=== PATIENT | female | born 1935 | race Caucasian/White ===

== ENCOUNTER → 2017-10-08 | Outpatient (CLI) | payer MEDICARE, OTHER ==
[~2017-10-08] MED LIST: ASPI81CH PO; ATEN25 PO; B12; BENAML10/5 PO; CALCAVITD PO; CIPR500 PO; CYAN500 PO; DONE10 PO; Flonase 0.05% N16 GM; LOVA40 PO; MEMA10 PO; NAMZARIC; OMEP20ER PO; OXYB5ER PO; PROBIOTIC1 EACH PO; RANI150 PO; Sleep Aid25 M1 PO; TOCO1000 PO; TUMS300 MG PO; VALS80 PO
[2017-10-08 10:04] LABS: Source, Urine Clean Catch
[2017-10-08 10:24] LABS: Bacteria Rare /hpf; Red Blood Cells, Urine 0-2 /hpf (0-2); Squamous Epithelial Cells Few /hpf (Few)
== END | disposition home or self-care (01) ==
LOC: LAB EV 10:02 → LAB SHORT 10:02
PROVIDERS: General Practice
DX: R41.82 Altered mental status, unspecified (principal)
CPT/HCPCS: 81015; 87086

== ENCOUNTER → 2017-11-20 | Outpatient (CLI) | payer MEDICARE, OTHER ==
[2017-11-20 11:29] LABS: Source, Urine Clean Catch
[2017-11-20 11:51] LABS: Bilirubin, Urine Neg (Neg); Blood, Urine 1+ (Neg); Glucose Qualitative, Urine Neg (Neg); Ketones, Urine Neg (Neg); Leukocyte Esterase, Urine 1+ (Neg); Nitrite, Urine Neg (Neg); Protein, Urine Neg (Neg); Specific Gravity, Urine 1.015 (1.003-1.022); Urobilinogen, Urine NORM (Normal)
[2017-11-20 12:13] LABS: Appearance, Urine Clear (Clear); Color, Urine Yellow (P-Yellow)
[2017-11-20 12:14] LABS: Bacteria Many /hpf; Squamous Epithelial Cells Few /hpf (Few)
== END ==
LOC: LAB 10:30 → LAB SHORT 10:30
PROVIDERS: Hospitalist
DX: N39.0 Urinary tract infection, site not specified (principal)
CPT/HCPCS: 81001; 87086

== ENCOUNTER → 2017-12-14 | Outpatient (CLI) | payer MEDICARE, OTHER ==
[2017-12-15 09:40] LABS: Source, Urine Clean Catch
[2017-12-15 10:02] LABS: Bilirubin, Urine Neg (Neg); Blood, Urine Neg (Neg); Glucose Qualitative, Urine Neg (Neg); Ketones, Urine Neg (Neg); Leukocyte Esterase, Urine Neg (Neg); Nitrite, Urine Neg (Neg); Protein, Urine Neg (Neg); Urobilinogen, Urine NORM (Normal); pH, Urine 6.5 (5.0-8.0)
[2017-12-15 10:12] LABS: Appearance, Urine Clear (Clear); Color, Urine Pale Yellow (P-Yellow)
== END | disposition home or self-care (01) ==
LOC: LAB 16:30 → LAB SHORT 16:30
PROVIDERS: Hospitalist
DX: N39.0 Urinary tract infection, site not specified (principal)
CPT/HCPCS: 81003

== ENCOUNTER 2018-07-08 15:59 | Inpatient (IN) | payer MEDICARE, OTHER ==
[~2018-07-08] VITALS: Ht 157.5 cm; Wt 84.0 kg
[~2018-07-08 15:59] MED LIST changes: -GABA300 PO; -OLME20 PO
[2018-07-08 16:38] LABS: BASOPHILS ABSOLUTE AUTO 0.03 K/mm3 (0.00-0.23); BASOPHILS PERCENT AUTO 0 % (0-2); EOSINOPHILS ABSOLUTE AUTO 0.08 K/mm3 (0.00-0.68); EOSINOPHILS PERCENT AUTO 1 % (0-6); Hematocrit 30.3 % (33.0-51.0); Hemoglobin 10.9 g/dL (11.5-16.0); IMMATURE GRAN ABSOLUTE AUTO 0.03 K/mm3 (0.00-0.10); IMMATURE GRAN PERCENT AUTO 0 % (0-1); LYMPHOCYTES ABSOLUTE AUTO 0.85 K/mm3 (0.84-5.20); LYMPHOCYTES PERCENT AUTO 9 % (21-46); MONOCYTES ABSOLUTE AUTO 1.53 K/mm3 (0.16-1.47); MONOCYTES PERCENT AUTO 16 % (4-13); Mean Corpuscular HGB 34.4 pg (26.0-34.0); Mean Platelet Volume 9.6 fL (9.1-12.4); NEUTROPHILS ABSOLUTE AUTO 7.04 K/mm3 (1.96-9.15); NEUTROPHILS PERCENT AUTO 74 % (41-73); Platelet Count 128 K/mm3 (150-400); RDW Coefficient Variation 12.1 % (11.7-14.2); RDW Standard Deviation 42.9 fL (35.1-46.3); Red Blood Cell Count 3.17 M/mm3 (3.80-5.20); White Blood Cell Count 9.56 K/mm3 (4.00-11.30)
[2018-07-08 16:40] LABS: Mean Corpuscular Volume 96 fL (80-100)
[2018-07-08 17:56] LABS: Alanine Aminotransfer (ALT/SGP 21 U/L (12-78); Albumin, Blood 3.1 g/dL (3.4-5.0); Albumin/Globulin Ratio 0.9 (0.8-1.8); Alk Phos 52 U/L (50-136); Anion Gap 13 mmol/L (6-16); Aspartate Aminotrans (AST/SGOT 27 U/L (12-37); Bilirubin, Total 0.6 mg/dL (0.1-1.0); Blood Urea Nitrogen 17 mg/dL (8-24); Bun/Creatinine Ratio 22.1 (12.0-20.0); CO2, Blood 17 mmol/L (21-32); Calcium, Blood 7.8 mg/dL (8.5-10.1); Chloride, Blood 89 mmol/L (98-108); Creatinine, Blood 0.77 mg/dL (0.40-1.00); Globulin, Blood 3.4 g/dL (2.2-4.0); Glomerular Filtration Rate >60 (60-); Glucose, Blood 95 mg/dL (70-99); Potassium, Blood 4.4 mmol/L (3.5-5.5); Sodium, Blood 119 mmol/L (136-145); Total Protein, Blood 6.5 g/dL (6.4-8.2)
[2018-07-08 22:29] LABS: Anion Gap 10 mmol/L (6-16); Blood Urea Nitrogen 14 mg/dL (8-24); Bun/Creatinine Ratio 19.4 (12.0-20.0); CO2, Blood 22 mmol/L (21-32); Calcium, Blood 8.1 mg/dL (8.5-10.1); Chloride, Blood 90 mmol/L (98-108); Creatinine, Blood 0.72 mg/dL (0.40-1.00); Glomerular Filtration Rate >60 (60-); Glucose, Blood 115 mg/dL (70-99); Potassium, Blood 4.2 mmol/L (3.5-5.5); Sodium, Blood 122 mmol/L (136-145)
--- NOTE | 2018-07-08 22:50 | NUR ---
PCU ADMIT PT BROUGHT TO PCU-09 FROM THE ER BY FREDTORREY @ APPROX 2240. PT ALERT, ORIENTED TO SELF AND DAUGHTER AT BEDSIDE. PT CONFUSED. DAUGHTER STATES PT HAS ALZHEIMERS AND RESIDES AT [facility]. PT SLID OVER FROM [facility] TO PCU BED D/T PT STATING "I CAN'T" WHEN ASKED IF SHE COULD GET UP TO THE OTHER BED. DAUGHTER STATES PT WALKS W/ CANE OR WALKER AT BASELINE. PT LUNG SOUNDS WHEEZY T/O, SPO2 > 92% ON RA. PT COUGHING FREQUENTLY W/ OCCASSIONAL SMALL AMOUNTS OF CLEAR SPUTUM. PRN COUGH MEDICATION PER EMAR. MONITOR SHOWS NSR, HR 70'S-80'S. PT INCONTINENT, WEARING ATTENDS. WILL CONTINUE TO MONITOR AND PROVIDE CARE.
[2018-07-08] MEDS ORDERED: ATEN25 PO (23:13)
[2018-07-08] MEDS ORDERED: OLME20 PO (23:37)
[2018-07-08] MEDS ORDERED: GABA300 PO (23:38)
[2018-07-09 03:56] LABS: BASOPHILS ABSOLUTE AUTO 0.02 K/mm3 (0.00-0.23); BASOPHILS PERCENT AUTO 0 % (0-2); EOSINOPHILS ABSOLUTE AUTO 0.04 K/mm3 (0.00-0.68); EOSINOPHILS PERCENT AUTO 1 % (0-6); Hematocrit 30.3 % (33.0-51.0); Hemoglobin 10.6 g/dL (11.5-16.0); IMMATURE GRAN ABSOLUTE AUTO 0.02 K/mm3 (0.00-0.10); IMMATURE GRAN PERCENT AUTO 0 % (0-1); LYMPHOCYTES ABSOLUTE AUTO 0.73 K/mm3 (0.84-5.20); LYMPHOCYTES PERCENT AUTO 10 % (21-46); MONOCYTES PERCENT AUTO 13 % (4-13); Mean Corpuscular HGB 33.7 pg (26.0-34.0); Mean Corpuscular Volume 96 fL (80-100); Mean Platelet Volume 9.6 fL (9.1-12.4); NEUTROPHILS PERCENT AUTO 76 % (41-73); Platelet Count 124 K/mm3 (150-400); RDW Coefficient Variation 12.1 % (11.7-14.2); RDW Standard Deviation 42.5 fL (35.1-46.3); Red Blood Cell Count 3.15 M/mm3 (3.80-5.20); White Blood Cell Count 7.01 K/mm3 (4.00-11.30)
[2018-07-09 04:10] LABS: Anion Gap 8 mmol/L (6-16); Blood Urea Nitrogen 14 mg/dL (8-24); Bun/Creatinine Ratio 18.5 (12.0-20.0); CO2, Blood 23 mmol/L (21-32); Calcium, Blood 8.2 mg/dL (8.5-10.1); Chloride, Blood 91 mmol/L (98-108); Creatinine, Blood 0.76 mg/dL (0.40-1.00); Glomerular Filtration Rate >60 (60-); Glucose, Blood 101 mg/dL (70-99); Potassium, Blood 4.3 mmol/L (3.5-5.5); Sodium, Blood 122 mmol/L (136-145)
--- NOTE | 2018-07-09 05:07 | NUR ---
SHIFT SUMMARY PT ALERT, RESTLESS T/O SHIFT, DISORIENTED, STATING "I'M IN THE WRONG ROOM. WHY DO PEOPLE KEEP COMING IN HERE?" PT REORIENTED T/O SHIFT, BUT PT CONTINUES TO BE ANXIOUS AND FEARFUL. PT FEARFUL OF FALLING WHILE STAFF ASSIST PT W/ REPOSITIONING AND PROVIDING CARE. PT STATES SHE'S FALLEN BUT DOESN'T KNOW WHEN. BRUISING NOTED ON PT'S LOWER BACK ABOVE BUTTOCKS. RED AREA NOTED ON COCCYX W/ NO OPEN WOUNDS, OTHERWISE SKIN C/D/I. LUNG SOUNDS WHEEZY T/O. PT COUGHING FREQUENTLY W/ OCCASSIONAL PRODUCTION OF SMALL AMOUNTS OF CLEAR SPUTUM. PRN COUGH MEDICATION PROVIDED PER EMAR. SPO2 > 92% ON RA. MONITOR SHOWS NSR, HR 70'S-80'S. PT REMOVING TELE DEVICE AND SCD'S WHILE RESTLESS IN BED, ITEMS REAPPLIED T/O SHIFT. PT INCONTINENT, WEARING ATTENDS. PRN MANJULA CARE/ATTENDS CHANGES PROVIDED. NORMAL SALINE GTT DC'D BY JAIDA LE, IV SITE SALINE LOCKED. PT IN BED W/ CALL LIGHT IN REACH, SIDE RAILS UP X4 PER PT/PT FAMILY PREFERENCE PT FEELS SAFER D/T FEAR OF FALLING. BED ALARM ON. WILL CONTINUE TO MONITOR AND PROVIDE CARE.
[2018-07-09 11:18] LABS: Adenovirus Not Detected (NOT DETECT); Bordetella pertussis Not Detected (NOT DETECT); Chlamydophila pneumoniae Not Detected (NOT DETECT); Coronavirus 229E Not Detected (NOT DETECT); Coronavirus HKU1 Not Detected (NOT DETECT); Coronavirus NL63 Not Detected (NOT DETECT); Coronavirus OC43 Not Detected (NOT DETECT); Human Metapneumovirus Detected (NOT DETECT); Human Rhinovirus/Enterovirus Not Detected (NOT DETECT); Influenza A Not Detected (NOT DETECT); Influenza A/2009-H1 Not Detected (NOT DETECT); Influenza A/H1 Not Detected (NOT DETECT); Influenza A/H3 Not Detected (NOT DETECT); Influenza B Not Detected (NOT DETECT); Mycoplasma pneumoniae Not Detected (NOT DETECT); Parainfluenza Virus 1 Not Detected (NOT DETECT); Parainfluenza Virus 2 Not Detected (NOT DETECT); Parainfluenza Virus 3 Not Detected (NOT DETECT); Parainfluenza Virus 4 Not Detected (NOT DETECT); Respiratory Syncytial Virus Not Detected (NOT DETECT)
--- NOTE | 2018-07-09 19:30 | NUR ---
ASSUMED CARE PT RESTING IN ROOM COMFORTABLY AT THIS TIME. PER DAY SHIFT PT HAD NO ACUTE CHANGES IN STATUS T/O DAY. PT HAS IVF INFUSING IN PIV TO BRING UP SODIUM LEVEL. PT IS CONFUSED AT BASELINE W/ HX OF DEMENTIA. PT REQUIRES FREQUENT ORIENTATION. RESP EVEN UNLABORED W/ PRODUCTIVE COUGH. SATS >92% ON RA. PT IS BEDREST WITH ATTENDS IN PLACE FOR INCONTINENCE. CALL LIGHT IN REACH. BED ALARM ON FOR SAFETY.
[2018-07-10 05:13] LABS: BASOPHILS ABSOLUTE AUTO 0.01 K/mm3 (0.00-0.23); BASOPHILS PERCENT AUTO 0 % (0-2); EOSINOPHILS ABSOLUTE AUTO 0.01 K/mm3 (0.00-0.68); EOSINOPHILS PERCENT AUTO 0 % (0-6); Hematocrit 30.9 % (33.0-51.0); Hemoglobin 10.9 g/dL (11.5-16.0); IMMATURE GRAN ABSOLUTE AUTO 0.06 K/mm3 (0.00-0.10); IMMATURE GRAN PERCENT AUTO 1 % (0-1); LYMPHOCYTES ABSOLUTE AUTO 0.77 K/mm3 (0.84-5.20); LYMPHOCYTES PERCENT AUTO 9 % (21-46); MONOCYTES ABSOLUTE AUTO 0.83 K/mm3 (0.16-1.47); MONOCYTES PERCENT AUTO 10 % (4-13); Mean Corpuscular HGB 34.5 pg (26.0-34.0); Mean Corpuscular HGB Conc 35.3 g/dL (31.5-36.5); Mean Corpuscular Volume 98 fL (80-100); Mean Platelet Volume 9.3 fL (9.1-12.4); NEUTROPHILS ABSOLUTE AUTO 6.47 K/mm3 (1.96-9.15); NEUTROPHILS PERCENT AUTO 80 % (41-73); Platelet Count 154 K/mm3 (150-400); RDW Standard Deviation 43.8 fL (35.1-46.3); Red Blood Cell Count 3.16 M/mm3 (3.80-5.20); White Blood Cell Count 8.15 K/mm3 (4.00-11.30)
[2018-07-10 05:44] LABS: Alanine Aminotransfer (ALT/SGP 21 U/L (12-78); Albumin, Blood 2.9 g/dL (3.4-5.0); Albumin/Globulin Ratio 0.9 (0.8-1.8); Alk Phos 51 U/L (50-136); Anion Gap 9 mmol/L (6-16); Aspartate Aminotrans (AST/SGOT 22 U/L (12-37); Bilirubin, Total 0.9 mg/dL (0.1-1.0); Blood Urea Nitrogen 15 mg/dL (8-24); Bun/Creatinine Ratio 19.7 (12.0-20.0); CO2, Blood 23 mmol/L (21-32); Calcium, Blood 8.6 mg/dL (8.5-10.1); Chloride, Blood 95 mmol/L (98-108); Creatinine, Blood 0.76 mg/dL (0.40-1.00); Globulin, Blood 3.1 g/dL (2.2-4.0); Glomerular Filtration Rate >60 (60-); Glucose, Blood 107 mg/dL (70-99); Potassium, Blood 4.4 mmol/L (3.5-5.5); Sodium, Blood 127 mmol/L (136-145)
--- NOTE | 2018-07-10 06:14 | NUR ---
SHIFT SUMMARY PT IS RESTING IN ROOM COMFORTABLY. NO ACUTE CHANGES T/O NIGHT. PT REMAINS AOX2 ONLY ORIENTED TO SELF AND FAMILY. PT HAS IVF INFUSING IN PIV TO RAISE SODIUM LEVELS. ATTENDS IN PLACE FOR INCONTINENCE. RESP EVEN UNLBAORED ON RA, SATS >92%. PT CONTINUES TO HAVE PRODUCTIVE COUGH. BED ALARM ON FOR SAFETY. CALL LIGHT IN REACH.
--- NOTE | 2018-07-10 19:07 | NUR ---
END OF SHIFT; NO ACUTE CHANGES IN PATIENT CONDITION DURING DAY SHIFT. HAND OFF TO NOC SHIFT RN BLANCA ARAUJO.
[2018-07-11 04:26] LABS: BASOPHILS ABSOLUTE AUTO 0.02 K/mm3 (0.00-0.23); BASOPHILS PERCENT AUTO 0 % (0-2); EOSINOPHILS PERCENT AUTO 0 % (0-6); Hematocrit 30.3 % (33.0-51.0); Hemoglobin 10.4 g/dL (11.5-16.0); IMMATURE GRAN ABSOLUTE AUTO 0.11 K/mm3 (0.00-0.10); IMMATURE GRAN PERCENT AUTO 1 % (0-1); LYMPHOCYTES ABSOLUTE AUTO 0.85 K/mm3 (0.84-5.20); LYMPHOCYTES PERCENT AUTO 9 % (21-46); MONOCYTES ABSOLUTE AUTO 0.82 K/mm3 (0.16-1.47); MONOCYTES PERCENT AUTO 9 % (4-13); Mean Corpuscular HGB 33.4 pg (26.0-34.0); Mean Corpuscular HGB Conc 34.3 g/dL (31.5-36.5); Mean Corpuscular Volume 97 fL (80-100); NEUTROPHILS PERCENT AUTO 81 % (41-73); Platelet Count 190 K/mm3 (150-400); RDW Coefficient Variation 12.4 % (11.7-14.2); RDW Standard Deviation 44.4 fL (35.1-46.3); Red Blood Cell Count 3.11 M/mm3 (3.80-5.20)
--- NOTE | 2018-07-11 04:32 | NUR ---
SHIFT SUMMARY PT ALERT, ORIENTED TO SELF AND FAMILY ONLY, FOLLOWING DIRECTIONS. EXPIRATORY WHEEZE HEARD IN BILAT UPPER LUNGS, DIM IN BASES. SPO2 > 92% ON RA. OCCASSIONAL NONPRODUCTIVE COUGH. MONITOR SHOWS NSR, HR 90'S. PT SLEEPING MAJORITY OF NIGHT. PT INCONTINENT OF URINE, PRN MANJULA CARE/ATTENDS CHANGES PROVIDED. SCD'S ON. NS GTT INFUSING PER ORDERS. WILL CONTINUE TO MONITOR AND PROVIDE CARE UNTIL REPORT OFF TO DAY SHIFT RN.
[2018-07-11 04:50] LABS: Alanine Aminotransfer (ALT/SGP 23 U/L (12-78); Albumin, Blood 2.9 g/dL (3.4-5.0); Alk Phos 46 U/L (50-136); Anion Gap 8 mmol/L (6-16); Aspartate Aminotrans (AST/SGOT 21 U/L (12-37); Bilirubin, Total 0.3 mg/dL (0.1-1.0); Blood Urea Nitrogen 15 mg/dL (8-24); Bun/Creatinine Ratio 20.7 (12.0-20.0); CO2, Blood 23 mmol/L (21-32); Calcium, Blood 8.6 mg/dL (8.5-10.1); Chloride, Blood 98 mmol/L (98-108); Creatinine, Blood 0.73 mg/dL (0.40-1.00); Glomerular Filtration Rate >60 (60-); Glucose, Blood 106 mg/dL (70-99); Potassium, Blood 4.5 mmol/L (3.5-5.5); Sodium, Blood 129 mmol/L (136-145); Total Protein, Blood 5.9 g/dL (6.4-8.2)
--- NOTE | 2018-07-11 16:30 | NUR ---
SHIFT SUMMARY PCU TRANSFER THIS AFTERNOON. PATIENT SETTLED INTO ROOM. DENIES PAIN, NAUSEA, OR SHORTNESS OF BREATH. UP IN CHAIR FOR DINNER. CHAIR/BED ALARM FOR SAFETY. CALL LIGHT IN REACH, WILL CONTINUE TO MONITOR.
--- NOTE | 2018-07-11 19:10 | NUR ---
CALL LIGHT IN REACH, DOESNT WANT A SHOWER NOR TEETH BRUSHED. URINATED 200 ML - OFF A BEDPAN. MOVED FROM CHAIR TO BED. GOING TO BED.
[2018-07-12 05:37] LABS: BASOPHILS ABSOLUTE AUTO 0.03 K/mm3 (0.00-0.23); BASOPHILS PERCENT AUTO 0 % (0-2); EOSINOPHILS ABSOLUTE AUTO 0.01 K/mm3 (0.00-0.68); EOSINOPHILS PERCENT AUTO 0 % (0-6); Hematocrit 29.6 % (33.0-51.0); Hemoglobin 10.3 g/dL (11.5-16.0); IMMATURE GRAN ABSOLUTE AUTO 0.25 K/mm3 (0.00-0.10); IMMATURE GRAN PERCENT AUTO 3 % (0-1); LYMPHOCYTES ABSOLUTE AUTO 1.23 K/mm3 (0.84-5.20); LYMPHOCYTES PERCENT AUTO 15 % (21-46); MONOCYTES ABSOLUTE AUTO 1.01 K/mm3 (0.16-1.47); MONOCYTES PERCENT AUTO 12 % (4-13); Mean Corpuscular HGB 34.1 pg (26.0-34.0); Mean Corpuscular HGB Conc 34.8 g/dL (31.5-36.5); Mean Corpuscular Volume 98 fL (80-100); Mean Platelet Volume 8.9 fL (9.1-12.4); NEUTROPHILS ABSOLUTE AUTO 5.81 K/mm3 (1.96-9.15); NEUTROPHILS PERCENT AUTO 70 % (41-73); Platelet Count 209 K/mm3 (150-400); RDW Coefficient Variation 12.5 % (11.7-14.2); RDW Standard Deviation 45.3 fL (35.1-46.3); Red Blood Cell Count 3.02 M/mm3 (3.80-5.20); White Blood Cell Count 8.34 K/mm3 (4.00-11.30)
[2018-07-12 06:09] LABS: Alanine Aminotransfer (ALT/SGP 34 U/L (12-78); Albumin, Blood 2.9 g/dL (3.4-5.0); Alk Phos 47 U/L (50-136); Anion Gap 9 mmol/L (6-16); Aspartate Aminotrans (AST/SGOT 33 U/L (12-37); Bilirubin, Total 0.6 mg/dL (0.1-1.0); Blood Urea Nitrogen 15 mg/dL (8-24); Bun/Creatinine Ratio 19.1 (12.0-20.0); CO2, Blood 22 mmol/L (21-32); Calcium, Blood 8.5 mg/dL (8.5-10.1); Chloride, Blood 100 mmol/L (98-108); Creatinine, Blood 0.79 mg/dL (0.40-1.00); Glomerular Filtration Rate >60 (60-); Glucose, Blood 89 mg/dL (70-99); Potassium, Blood 4.1 mmol/L (3.5-5.5); Sodium, Blood 131 mmol/L (136-145); Total Protein, Blood 5.9 g/dL (6.4-8.2)
--- NOTE | 2018-07-12 06:44 | NUR ---
SHIFT SUMMARY PT SLEPT WELL T/O NIGHT. AOX1, FOLLOWS DIRECTIONS & ANSWERS YES/NO QUESTIONS. VSS. DENIES PAIN, N/V OR SOB. PT HAS OCCASIONAL DRY NONPRODUCTIVE COUGH. SBA W/AMBULATION TO RESTROOM. CALL LIGHT IS IN REACH & PT USES APPROPRIATELY. I WILL CONT TO MONITOR PT.
--- NOTE | 2018-07-12 19:51 | NUR ---
SHIFT SUMMARY PATIENT A&O X2. CONFUSED AT TIMES. DENIES PAIN OR SOB. C/O OF A HARSH COUGH THROGHOUT THE SHIFT. RN MEDICATED PER E JUL. PATIENT RESTED THROUGHOUT THE SHIFT. RESP E/U ON RA. NO ACUTE CHANGES THIS SHIFT.
--- NOTE | 2018-07-13 07:25 | NUR ---
SHIFT SUMMARY PT SLEPT WELL T/O NIGHT. AOX1. ANSWERS QUESTIONS APPROPRIATELY & FOLLOWS DIRECTIONS. IN MIDDLE OF NIGHT PT WAS TEARFUL & REPORTED FEELING SCARED SINCE SHE WAS CONFUSED TO WHERE SHE WAS, REORIENTED & REASSURED PT. PT DENIES SOB, N/V OR PAIN. SPO2 >90% ON RA. THIS AM BP 172/78, MEDICATED W/HYDRALAZINE PER ORDERS & BP WENT DOWN TO 147/59. PT HAS A DRY NON-PRODUCTIVE COUGH & WAS MEDICATED W/TESSALON & ROBITUSSIN PER ORDERS. WHEN PT BLEW NOSE EARLIER IN AM THICK CLEAR MUCUS W/SOME BLOOD WAS PRESENT. PT WAS INCONTINENT OF URINE @LEAST 3-4 TIMES T/O NIGHT. CALL LIGHT IS IN REACH & BED ALARM IS ON.
--- NOTE | 2018-07-13 16:43 | NUR ---
SHIFT SUMMARY PATIENT A&O X2 THIS SHIFT. DENIES PAIN OR SOB. RN MEDICATED THROUGHOUT THE SHIFT FOR A COUGH. PATIENT APPEARS TO BE A LOT MORE CONFUSED IN THE MORNING AND EVENINGS, AT THE BEGINING OF THE SHIFT NOT KNOWING WHERE SHE WAS OR WHERE SHE LIVED. NO ACUTE CHANGES THIS SHIFT. BED ALARM IS IN PLACE, CALL LIGHT WITHIN REACH.
--- NOTE | 2018-07-14 05:25 | NUR ---
83 year old Female from [place] with hyponatremia started on clinimix for nutritional support. she has poor oral intake of fluids, loose nonprod cough. on dysphagia precautions and has pleasant confusion. no complaints. knows she is at hospital but thought it was AM. Planning to return to [place] Monday if cleared. has multiple scattered bruises, recent fall. fall precautions.
[2018-07-14 05:28] LABS: Hematocrit 32.7 % (33.0-51.0); Hemoglobin 11.1 g/dL (11.5-16.0); Mean Corpuscular HGB 33.1 pg (26.0-34.0); Mean Corpuscular HGB Conc 33.9 g/dL (31.5-36.5); Mean Corpuscular Volume 98 fL (80-100); NRBC ABSOLUTE 0.02 K/mm3 (0.00-0.02); NRBC Auto 0.3 /100 WBC (0.0-0.2); Platelet Count 240 K/mm3 (150-400); RDW Coefficient Variation 12.6 % (11.7-14.2); Red Blood Cell Count 3.35 M/mm3 (3.80-5.20); White Blood Cell Count 7.79 K/mm3 (4.00-11.30)
[2018-07-14 06:02] LABS: Alanine Aminotransfer (ALT/SGP 49 U/L (12-78); Albumin, Blood 2.9 g/dL (3.4-5.0); Alk Phos 46 U/L (50-136); Anion Gap 7 mmol/L (6-16); Aspartate Aminotrans (AST/SGOT 30 U/L (12-37); Bilirubin, Total 0.5 mg/dL (0.1-1.0); Blood Urea Nitrogen 15 mg/dL (8-24); Bun/Creatinine Ratio 17.1 (12.0-20.0); CO2, Blood 26 mmol/L (21-32); Calcium, Blood 8.3 mg/dL (8.5-10.1); Chloride, Blood 98 mmol/L (98-108); Creatinine, Blood 0.88 mg/dL (0.40-1.00); Globulin, Blood 2.9 g/dL (2.2-4.0); Glomerular Filtration Rate >60 (60-); Glucose, Blood 97 mg/dL (70-99); Magnesium, Blood 2.1 mg/dL (1.6-2.4); Phosphorus, Blood 3.3 mg/dL (2.5-4.9); Potassium, Blood 4.2 mmol/L (3.5-5.5); Sodium, Blood 131 mmol/L (136-145); Total Protein, Blood 5.8 g/dL (6.4-8.2)
[2018-07-14 07:12] LABS: BAND PERCENT MAN 2 % (0-8); BASOPHILS ABSOLUTE MAN 0.07 K/mm3 (0.00-0.23); BASOPHILS PERCENT MAN 1 % (0-2); EOSINOPHILS ABSOLUTE MAN 0.07 K/mm3 (0.00-0.68); EOSINOPHILS PERCENT MAN 1 % (0-6); LYMPHOCYTES ABSOLUTE MAN 1.01 K/mm3 (0.84-5.20); LYMPHOCYTES PERCENT MAN 13 % (21-46); METAMYELOCYTE ABSOLUTE MAN 0.23 K/mm3 (0.00-0.00); METAMYELOCYTE PERCENT MAN 3 % (0-0); MONOCYTES ABSOLUTE MAN 1.09 K/mm3 (0.16-1.47); MONOCYTES PERCENT MAN 14 % (4-13); MYELOCYTE ABSOLUTE MAN 0.31 K/mm3 (0.00-0.00); MYELOCYTE PERCENT MAN 4 % (0-0); NEUTROPHILS ABSOLUTE MAN 4.98 K/mm3 (1.96-9.15); SEG NEUTROPHILS PERCENT MAN 62 % (41-73); TOTAL CELLS COUNTED 100
--- NOTE | 2018-07-14 18:08 | NUR ---
PT PLEASANT AND COOPERATIVE THIS SHIFT, UP TO BEDSIDE CHAIR A GOOD PORTION OF THE DAY. WORKED WITH PHYSICAL THERAPY THIS AFTERNOON. NO C/O PAIN OR OTHER DISCOMFORT. WILL CONTINUE TO MONITOR AND REPORT TO ONCOMING RN
--- NOTE | 2018-07-15 06:33 | NUR ---
PT CONTINUES A HIGH FALL RISK AND SHE DID ATTEMPT TO CLIMB OUT OF BED X 1 WHEN IV AND SCDS ATTACHED. MILD CONFUSIN REDIRECTS AND PLEASANT. NOPROD LOOSE COUGH. LIKES NECTAR THICK LIQUIDS BETTER THAN THIN. CONTINUES ON CLINIMIX FOR NUTRITIONAL SUPPORT. DENIES PAIN , UP WITH 1 ASSIST FWW RAPID GAIT. CONTINES ON ROOM AIR.
--- NOTE | 2018-07-15 19:24 | NUR ---
NO ACUTE CHANGES, PT TO BE DISCHARGED TOMORROW BACK TO [facility]. FAMILY IS REQUESTING A SCRIP FOR WHEELCHAIR AND WALKER [facility] WILL REQUIRE THIS BEFORE PT RETURNS. NO ACUTE CHANGES NOTED THS SHIFT, WILL CONTINUE TO MONITOR AND REPORT TO ONCOMING RN.
[2018-07-16 05:23] LABS: Hematocrit 32.6 % (33.0-51.0); Hemoglobin 11.2 g/dL (11.5-16.0); Mean Corpuscular HGB 33.4 pg (26.0-34.0); Mean Corpuscular HGB Conc 34.4 g/dL (31.5-36.5); Mean Corpuscular Volume 97 fL (80-100); Mean Platelet Volume 8.8 fL (9.1-12.4); Platelet Count 261 K/mm3 (150-400); RDW Coefficient Variation 12.5 % (11.7-14.2); RDW Standard Deviation 44.7 fL (35.1-46.3); Red Blood Cell Count 3.35 M/mm3 (3.80-5.20)
[2018-07-16 05:55] LABS: Alanine Aminotransfer (ALT/SGP 61 U/L (12-78); Albumin, Blood 3.1 g/dL (3.4-5.0); Alk Phos 45 U/L (50-136); Anion Gap 7 mmol/L (6-16); Aspartate Aminotrans (AST/SGOT 33 U/L (12-37); Bilirubin, Total 0.7 mg/dL (0.1-1.0); Blood Urea Nitrogen 26 mg/dL (8-24); Bun/Creatinine Ratio 31.9 (12.0-20.0); CO2, Blood 26 mmol/L (21-32); Calcium, Blood 8.6 mg/dL (8.5-10.1); Chloride, Blood 97 mmol/L (98-108); Creatinine, Blood 0.82 mg/dL (0.40-1.00); Glomerular Filtration Rate >60 (60-); Glucose, Blood 101 mg/dL (70-99); Potassium, Blood 4.5 mmol/L (3.5-5.5); Sodium, Blood 130 mmol/L (136-145); Total Protein, Blood 6.1 g/dL (6.4-8.2)
--- NOTE | 2018-07-16 06:29 | NUR ---
pt continues alert and pleasantly confused. incontinent of large amts of urine. Does not ask for assist with toileting until she is incontinent. Denies pain or acute distress. on room air with no complaints of dyspnea
[2018-07-16 06:42] LABS: BAND PERCENT MAN 1 % (0-8); BASOPHILS PERCENT MAN 0 % (0-2); EOSINOPHILS ABSOLUTE MAN 0.21 K/mm3 (0.00-0.68); EOSINOPHILS PERCENT MAN 2 % (0-6); LYMPHOCYTES % ATYPICAL MANUAL 1 % (0-0); LYMPHOCYTES ABSOLUTE MAN 2.03 K/mm3 (0.84-5.20); LYMPHOCYTES PERCENT MAN 18 % (21-46); MONOCYTES ABSOLUTE MAN 0.42 K/mm3 (0.16-1.47); MONOCYTES PERCENT MAN 4 % (4-13); MYELOCYTE ABSOLUTE MAN 0.42 K/mm3 (0.00-0.00); MYELOCYTE PERCENT MAN 4 % (0-0); NEUTROPHILS ABSOLUTE MAN 7.59 K/mm3 (1.96-9.15); SEG NEUTROPHILS PERCENT MAN 70 % (41-73); TOTAL CELLS COUNTED 100
[2018-07-16] MEDS ORDERED: Acetaminophen325 M1 PO (11:20)
[2018-07-16] MEDS ORDERED: BENZ100A PO (11:21)
[2018-07-16] MEDS ORDERED: B-121000 MC2 PO (11:21)
[2018-07-16] MEDS ORDERED: WAL TUSSIN DM PO (11:23)
[2018-07-16] MEDS ORDERED: DONE10 PO (11:23)
[2018-07-16] MEDS ORDERED: MUCUS ER600 MG PO (11:26)
[2018-07-16] MEDS ORDERED: OMEPRAZOLE MAGN20 MG PO (11:26)
[2018-07-16] MEDS ORDERED: MEMA10 PO (11:27)
[2018-07-16] MEDS ORDERED: PRED10 PO (11:28)
[2018-07-16] MEDS ORDERED: ALBU90OI INH (11:28)
--- NOTE | 2018-07-16 11:29 | NUR ---
business center attendant FROM [place] IN EARLY THIS AM TO CHECK ON D/C HOME STATUS. STATE NEED FOR PT TO COME HOME PRIOR TO [address] VELEZ IN APPROX 1030, STATE PT READY FOR D/C, PROVIDE ORDER. [facility]RO[facility] CH[facility]VE[facility] FAX ORDERS, NOTIFY FAMILY & ARRANGE TRANSPORTATION FOR 1130. AUTOMOBILE SALESMAN PROVIDE BEDBATH. PT ASSISTED TO DRESS/GATHER BELONGINGS, UP IN CHAIR AWAITING W/C VAN TRANSPORT.
== END 2018-07-16 11:44 | disposition hospice, home (50) | DRG 193 ==
LOC: ER 15:59 → ERHOLD 17:47 → PCU 17:47 → MEDS 17:47 → PCU 22:35 → MEDS 07-11 15:00 → ENPENDDIS 07-16 11:17 → EDPENDDIS 07-16 11:17 → MEDS 07-16 11:44
PROVIDERS: Family Medicine; Hospitalist; Physician Assistant; ADMIT Family Medicine
DX: J12.3 Human metapneumovirus pneumonia (principal); J96.01 Acute respiratory failure with hypoxia; E87.1 Hypo-osmolality and hyponatremia; J20.9 Acute bronchitis, unspecified; E86.9 Volume depletion, unspecified; F02.80 Dementia in other diseases classified elsewhere, unspecified severity, without behavioral disturbance, psychotic disturbance, mood disturbance, and anxiety; E78.5 Hyperlipidemia, unspecified; K21.9 Gastro-esophageal reflux disease without esophagitis; K57.90 Diverticulosis of intestine, part unspecified, without perforation or abscess without bleeding; I12.9 Hypertensive chronic kidney disease with stage 1 through stage 4 chronic kidney disease, or unspecified chronic kidney disease; N18.3 Chronic kidney disease, stage 3 (moderate); D69.6 Thrombocytopenia, unspecified; D63.1 Anemia in chronic kidney disease; E86.0 Dehydration; Z87.891 Personal history of nicotine dependence; G30.1 Alzheimer's disease with late onset
CPT/HCPCS: 36415; 71046; 80048; 80053; 83605; 83735; 83930; 84100; 84145; 84300; 84484; 85025; 87486; 87581; 87633; 87798; 92526; 92610; 93005; 93010; 94640; 94760; 96361; 96372-59; 96374; 97116; 97162; 97530; 99285-25; J0360; J1650; J2405; J7030; J7131; J7626

== ENCOUNTER → 2018-07-08 | Outpatient (CLI) | payer MEDICARE, OTHER ==
[~2018-07-08] MED LIST changes: +GABA300 PO; +OLME20 PO
[2018-07-08 15:20] LABS: BASOPHILS ABSOLUTE AUTO 0.02 K/mm3 (0.00-0.23); BASOPHILS PERCENT AUTO 0 % (0-2); EOSINOPHILS ABSOLUTE AUTO 0.08 K/mm3 (0.00-0.68); EOSINOPHILS PERCENT AUTO 1 % (0-6); Hemoglobin 11.2 g/dL (11.5-16.0); IMMATURE GRAN ABSOLUTE AUTO 0.03 K/mm3 (0.00-0.10); IMMATURE GRAN PERCENT AUTO 0 % (0-1); LYMPHOCYTES ABSOLUTE AUTO 0.57 K/mm3 (0.84-5.20); LYMPHOCYTES PERCENT AUTO 6 % (21-46); MONOCYTES ABSOLUTE AUTO 1.17 K/mm3 (0.16-1.47); MONOCYTES PERCENT AUTO 13 % (4-13); Mean Corpuscular HGB 34.4 pg (26.0-34.0); Mean Corpuscular HGB Conc 37.3 g/dL (31.5-36.5); Mean Corpuscular Volume 92 fL (80-100); Mean Platelet Volume 9.5 fL (9.1-12.4); NEUTROPHILS ABSOLUTE AUTO 7.24 K/mm3 (1.96-9.15); NEUTROPHILS PERCENT AUTO 80 % (41-73); Platelet Count 129 K/mm3 (150-400); RDW Coefficient Variation 12.1 % (11.7-14.2); RDW Standard Deviation 41.1 fL (35.1-46.3); Red Blood Cell Count 3.26 M/mm3 (3.80-5.20); White Blood Cell Count 9.11 K/mm3 (4.00-11.30)
[2018-07-08 15:29] LABS: Albumin, Blood 3.1 g/dL (3.4-5.0); Albumin/Globulin Ratio 0.9 (0.8-1.8); Bilirubin, Total 0.7 mg/dL (0.1-1.0); Bun/Creatinine Ratio 16.4 (12.0-20.0); Calcium, Blood 8.1 mg/dL (8.5-10.1); Creatinine, Blood 1.1 mg/dL (0.40-1.00); Globulin, Blood 3.4 g/dL (2.2-4.0); Potassium, Blood 4.5 mmol/L (3.5-5.5); Total Protein, Blood 6.5 g/dL (6.4-8.2)
== END | disposition home or self-care (01) ==
LOC: LAB SHORT 15:14 → LAB EV 15:14
PROVIDERS: General Practice
DX: R05 Cough (principal)
CPT/HCPCS: 80053; 85025

== ENCOUNTER 2018-07-23 19:21 | Emergency (ER) | payer MEDICARE, OTHER ==
[~2018-07-23] VITALS: Ht 167.6 cm; Wt 81.7 kg
[~2018-07-23 19:21] MED LIST changes: +ALBU90OI INH; +Acetaminophen325 M1 PO; +B-121000 MC2 PO; +BENZ100A PO; +GABA300 PO; +MUCUS ER600 MG PO; +OLME20 PO; +OMEPRAZOLE MAGN20 MG PO; +PRED10 PO; +WAL TUSSIN DM PO
[2018-07-23 20:02] LABS: BASOPHILS ABSOLUTE AUTO 0.07 K/mm3 (0.00-0.23); BASOPHILS PERCENT AUTO 1 % (0-2); EOSINOPHILS ABSOLUTE AUTO 0.19 K/mm3 (0.00-0.68); EOSINOPHILS PERCENT AUTO 2 % (0-6); Hematocrit 34.8 % (33.0-51.0); Hemoglobin 11.7 g/dL (11.5-16.0); IMMATURE GRAN ABSOLUTE AUTO 0.07 K/mm3 (0.00-0.10); IMMATURE GRAN PERCENT AUTO 1 % (0-1); LYMPHOCYTES PERCENT AUTO 14 % (21-46); MONOCYTES ABSOLUTE AUTO 1.08 K/mm3 (0.16-1.47); MONOCYTES PERCENT AUTO 14 % (4-13); Mean Corpuscular HGB 33.7 pg (26.0-34.0); Mean Corpuscular HGB Conc 33.6 g/dL (31.5-36.5); Mean Platelet Volume 9.4 fL (9.1-12.4); NEUTROPHILS ABSOLUTE AUTO 5.48 K/mm3 (1.96-9.15); NEUTROPHILS PERCENT AUTO 69 % (41-73); Platelet Count 220 K/mm3 (150-400); RDW Coefficient Variation 13.2 % (11.7-14.2); RDW Standard Deviation 48.9 fL (35.1-46.3); Red Blood Cell Count 3.47 M/mm3 (3.80-5.20); White Blood Cell Count 7.99 K/mm3 (4.00-11.30)
[2018-07-23 20:04] LABS: Mean Corpuscular Volume 100 fL (80-100)
[2018-07-23 20:27] LABS: Alanine Aminotransfer (ALT/SGP 28 U/L (12-78); Albumin, Blood 3.4 g/dL (3.4-5.0); Albumin/Globulin Ratio 1.1 (0.8-1.8); Alk Phos 55 U/L (50-136); Anion Gap 6 mmol/L (6-16); Aspartate Aminotrans (AST/SGOT 8 U/L (12-37); Bilirubin, Total 0.5 mg/dL (0.1-1.0); Blood Urea Nitrogen 22 mg/dL (8-24); Bun/Creatinine Ratio 21.4 (12.0-20.0); CO2, Blood 26 mmol/L (21-32); Calcium, Blood 8.6 mg/dL (8.5-10.1); Chloride, Blood 99 mmol/L (98-108); Creatinine, Blood 1.03 mg/dL (0.40-1.00); Glomerular Filtration Rate 54 (60-); Glucose, Blood 110 mg/dL (70-99); Potassium, Blood 4.2 mmol/L (3.5-5.5); Sodium, Blood 131 mmol/L (136-145); Total Protein, Blood 6.4 g/dL (6.4-8.2); Troponin I <0.015 ng/mL (0.000-0.040)
== END 2018-07-23 21:20 | disposition home or self-care (01) ==
LOC: ER 19:21
PROVIDERS: Emergency Medicine
DX: R07.9 Chest pain, unspecified (principal); Z88.0 Allergy status to penicillin; Z88.5 Allergy status to narcotic agent; Z79.82 Long term (current) use of aspirin; Z79.899 Other long term (current) drug therapy; Z79.52 Long term (current) use of systemic steroids; I10 Essential (primary) hypertension; E78.5 Hyperlipidemia, unspecified; K21.9 Gastro-esophageal reflux disease without esophagitis; Z87.891 Personal history of nicotine dependence
CPT/HCPCS: 36415; 71046; 80053; 84484; 85025; 93005; 93010; 99285-25

== ENCOUNTER → 2018-10-01 | Outpatient (CLI) | payer MEDICARE, OTHER ==
[2018-10-02 13:42] LABS: Source, Urine Clean Catch
[2018-10-02 14:15] LABS: Bilirubin, Urine Neg (Neg); Blood, Urine Neg (Neg); Color, Urine Yellow (P-Yellow); Glucose Qualitative, Urine Neg (Neg); Ketones, Urine Neg (Neg); Leukocyte Esterase, Urine 2+ (Neg); Nitrite, Urine Neg (Neg); Protein, Urine Neg (Neg); Urobilinogen, Urine NORM (Normal)
[2018-10-02 14:45] LABS: Appearance, Urine Clear (Clear)
[2018-10-02 14:47] LABS: Bacteria Few /hpf; Red Blood Cells, Urine 0-2 /hpf (0-2); Squamous Epithelial Cells Mod /hpf (Few)
== END | disposition home or self-care (01) ==
LOC: LAB SHORT 13:28 → LAB 13:28 → LAB SHORT 10-02 13:28
PROVIDERS: Hospitalist
DX: N39.0 Urinary tract infection, site not specified (principal)
CPT/HCPCS: 81001

== ENCOUNTER → 2019-01-10 | Outpatient (CLI) | payer MEDICARE, OTHER ==
[~2019-01-10] MED LIST changes: +ACET500 PO; +ALBU2.5V5 INH; -ALBU90OI INH; -ASPI81CH PO; -Acetaminophen325 M1 PO; +Aspirin EC81 MG PO; +BENGAY113 GM TOP; +BISA10S PR; +CEFD300 PO; +CLINPRO 5000113 GM PO; +COUGH MM; +Culturelle1 CAP PO; +Eq Liquid Anta769 ML PO; +FURO20 PO; +Fleet Enema132 ML PR; +GUAI600T33 PO; +MYRBETRIQ25 MG PO; +Milk Of Ma400 MG/5 M PO; +NAMZARIC 28 MG1 EACH PO; +NITR100CA PO; +PINK BISMU PO; +POTA10T PO; +PROAIR RESPICL90 MCG INH; +Pedi-Dri 100,0060 GM TOP; +Pulmicort0.5 MG/2 M INH; +TRAZ50 PO; +TUMS500 MG PO; +TUSSIN MUC100 MG/5 M PO; +VITAMIN D-32000 UNIT PO; +Zantac150 MG PO
[2019-01-10 14:44] LABS: Bilirubin, Urine Neg (Neg); Blood, Urine 2+ (Neg); Glucose Qualitative, Urine Neg (Neg); Ketones, Urine 1+ (Neg); Leukocyte Esterase, Urine 2+ (Neg); Nitrite, Urine Neg (Neg); Protein, Urine 2+ (Neg); Specific Gravity, Urine 1.025 (1.003-1.022); Urobilinogen, Urine 2+ (Normal)
[2019-01-10 15:01] LABS: Appearance, Urine Hazy (Clear); Color, Urine Yellow (P-Yellow)
[2019-01-10 15:02] LABS: White Blood Cells, Urine 25-50 /hpf (0-5)
[2019-01-10 15:04] LABS: Bacteria Many /hpf; Calcium Oxalate Crystals Few /hpf; Squamous Epithelial Cells Few /hpf (Few)
== END ==
LOC: LAB 14:38 → LAB SHORT 14:38
PROVIDERS: Hospitalist
DX: N39.0 Urinary tract infection, site not specified (principal)
CPT/HCPCS: 81001; 87077; 87086; 87186

== ENCOUNTER 2019-01-18 11:11 | Inpatient (IN) | payer MEDICARE, OTHER ==
[~2019-01-18] VITALS: Ht 162.6 cm; Wt 91.6 kg
[~2019-01-18 11:11] MED LIST changes: -BENGAY113 GM TOP; -BISA10S PR; -CEFD300 PO; -CLINPRO 5000113 GM PO; -COUGH MM; -Culturelle1 CAP PO; -Eq Liquid Anta769 ML PO; -FURO20 PO; -Fleet Enema132 ML PR; -GUAI600T33 PO; -MYRBETRIQ25 MG PO; -Milk Of Ma400 MG/5 M PO; -NAMZARIC 28 MG1 EACH PO; -NITR100CA PO; -PINK BISMU PO; -POTA10T PO; -PROAIR RESPICL90 MCG INH; -Pedi-Dri 100,0060 GM TOP; -Pulmicort0.5 MG/2 M INH; -TRAZ50 PO; -TUMS500 MG PO; -TUSSIN MUC100 MG/5 M PO; -VITAMIN D-32000 UNIT PO; -Zantac150 MG PO
[2019-01-18 12:14] LABS: BASOPHILS ABSOLUTE AUTO 0.06 K/mm3 (0.00-0.23); BASOPHILS PERCENT AUTO 1 % (0-2); EOSINOPHILS ABSOLUTE AUTO 0.09 K/mm3 (0.00-0.68); EOSINOPHILS PERCENT AUTO 1 % (0-6); Hemoglobin 11.5 g/dL (11.5-16.0); IMMATURE GRAN ABSOLUTE AUTO 0.04 K/mm3 (0.00-0.10); IMMATURE GRAN PERCENT AUTO 0 % (0-1); LYMPHOCYTES ABSOLUTE AUTO 0.47 K/mm3 (0.84-5.20); LYMPHOCYTES PERCENT AUTO 5 % (21-46); MONOCYTES ABSOLUTE AUTO 1.56 K/mm3 (0.16-1.47); MONOCYTES PERCENT AUTO 17 % (4-13); Mean Corpuscular HGB 34.2 pg (26.0-34.0); Mean Corpuscular HGB Conc 33.8 g/dL (31.5-36.5); Mean Corpuscular Volume 101 fL (80-100); Mean Platelet Volume 9.9 fL (9.1-12.4); NEUTROPHILS ABSOLUTE AUTO 6.76 K/mm3 (1.96-9.15); NEUTROPHILS PERCENT AUTO 75 % (41-73); Platelet Count 189 K/mm3 (150-400); RDW Coefficient Variation 14.5 % (11.7-14.2); RDW Standard Deviation 54.4 fL (35.1-46.3); Red Blood Cell Count 3.36 M/mm3 (3.80-5.20); White Blood Cell Count 8.98 K/mm3 (4.00-11.30)
[2019-01-18 12:27] LABS: Alanine Aminotransfer (ALT/SGP 24 U/L (12-78); Albumin, Blood 3.3 g/dL (3.4-5.0); Albumin/Globulin Ratio 1.2 (0.8-1.8); Alk Phos 61 U/L (50-136); Anion Gap 6 mmol/L (6-16); Aspartate Aminotrans (AST/SGOT 12 U/L (12-37); Bilirubin, Total 0.9 mg/dL (0.1-1.0); Blood Urea Nitrogen 15 mg/dL (8-24); Bun/Creatinine Ratio 16.4 (12.0-20.0); CO2, Blood 28 mmol/L (21-32); Calcium, Blood 8.5 mg/dL (8.5-10.1); Chloride, Blood 90 mmol/L (98-108); Creatinine, Blood 0.92 mg/dL (0.40-1.00); Globulin, Blood 2.7 g/dL (2.2-4.0); Glomerular Filtration Rate >60 (60-); Glucose, Blood 84 mg/dL (70-99); Potassium, Blood 4.3 mmol/L (3.5-5.5); Sodium, Blood 124 mmol/L (136-145); Troponin I 0.017 ng/mL (0.000-0.040)
[2019-01-18 13:01] LABS: Source, Urine Catheter
[2019-01-18 13:03] LABS: Bilirubin, Urine Neg (Neg); Blood, Urine 1+ (Neg); Glucose Qualitative, Urine Neg (Neg); Ketones, Urine Neg (Neg); Leukocyte Esterase, Urine 1+ (Neg); Nitrite, Urine Neg (Neg); Protein, Urine 2+ (Neg); Urobilinogen, Urine 1+ (Normal)
[2019-01-18] MEDS ORDERED: TUMS500 MG PO (13:07)
[2019-01-18] MEDS ORDERED: CLINPRO 5000113 GM PO (13:07)
[2019-01-18] MEDS ORDERED: Culturelle1 CAP PO (13:08)
[2019-01-18] MEDS ORDERED: NAMZARIC 28 MG1 EACH PO (13:09)
[2019-01-18] MEDS ORDERED: MYRBETRIQ25 MG PO (13:09)
[2019-01-18] MEDS ORDERED: TRAZ50 PO (13:10)
[2019-01-18] MEDS ORDERED: TOCO1000 PO (13:11)
[2019-01-18] MEDS ORDERED: VITAMIN D-32000 UNIT PO (13:11)
[2019-01-18] MEDS ORDERED: Zantac150 MG PO (13:12)
[2019-01-18 13:14] LABS: Appearance, Urine Hazy (Clear); Color, Urine Yellow (P-Yellow)
[2019-01-18 13:15] LABS: Bacteria Rare /hpf; Red Blood Cells, Urine 0-2 /hpf (0-2); Squamous Epithelial Cells Few /hpf (Few); White Blood Cells, Urine 0-2 /hpf (0-5)
[2019-01-18] MEDS ORDERED: NITR100CA PO (16:50)
[2019-01-18] MEDS ORDERED: BENGAY113 GM TOP (16:52)
[2019-01-18] MEDS ORDERED: BISA10S PR (16:53)
[2019-01-18] MEDS ORDERED: COUGH MM (16:55)
[2019-01-18] MEDS ORDERED: Fleet Enema132 ML PR (16:55)
[2019-01-18] MEDS ORDERED: GUAI600T33 PO (16:56)
[2019-01-18] MEDS ORDERED: Milk Of Ma400 MG/5 M PO (16:56)
[2019-01-18] MEDS ORDERED: Eq Liquid Anta769 ML PO (16:57)
[2019-01-18] MEDS ORDERED: Pedi-Dri 100,0060 GM TOP (16:58)
[2019-01-18] MEDS ORDERED: Pulmicort0.5 MG/2 M INH (17:00)
[2019-01-18] MEDS ORDERED: PINK BISMU PO (17:00)
[2019-01-18] MEDS ORDERED: TUSSIN MUC100 MG/5 M PO (17:01)
[2019-01-18] MEDS ORDERED: ACET500 PO (17:02)
[2019-01-18] MEDS ORDERED: BENZ100A PO (17:02)
[2019-01-18] MEDS ORDERED: PROAIR RESPICL90 MCG INH (17:03)
--- NOTE | 2019-01-18 18:12 | NUR ---
3753 RECEIVED PT TO 306 VIA QING FROM ER. SLIDE TX TO BED. RECEIVED REPORT FROM VLADISLAV ARAUJO, PT TO ER FROM [facility] D/T "BEING MORE ALTERED THAN NORMAL". PT WITH BASELINE ALZ DEMENTIA, DOES NOT AMBULATE INDEPENDENTLY, AND IS INCONTINENT OF BOWEL AND BLADDER. FAMILY TO WITH PT. DR OWUSU TO SHORTLY AFTER PT TO . PER REPORT, PT FELL LAST NIGHT WHILE USING HER FWW; BRUISE TO L SHOULDER. FAMILY REPORTED NO INJURY R/T FALL, NO APPARENT BRUISING TO FACE OR HEAD. PT ADMITTED FOR CHF, BUT FAMILY REPORTS NO HX OF CHF. [facility] REPORTED PT WITH A WEIGHT GAIN OF 12LBS IN THE LAST MONTH. FAMILY REPORTED PT TX'D FOR UTI WITH ABX LAST WEEKEND. PT TO RECEIVE LASIX IN ER, JUST PRIOR TO COMING UP TO UNIT. PT INCONTINENT WHEN TX'D. MICHAEL CATH PLACED FOR STRICT I&O'S WHILE DIURESING D/T INCONTINENCE. YEAST RASH TO ABD SKIN FOLDS AND MANJULA AREA. NYSTATIN ORDERED; PHARMACY NOTIFIED TO OBTAIN. TELE MX PLACED; SR @ 55. [address] MICHAEL CATH PLACED WHEN PT RETURNED TO . LUNGS T/O WITH COARSE CRACKLES. BLE EDEMA, LLE > THAN RLE. PT FORGETFUL, NEEDING FREQUENT REMINDERS. BED ALARM ON FOR SAFETY. CALL LT IN REACH. PT'S DAUGHTER REMAINED IN WHILE PT EATING DINNER
--- NOTE | 2019-01-18 19:34 | NUR ---
UA OBTAINED FROM MICHAEL CATH AND SENT FOR MICHAEL PLACEMENT PROTOCOL.
[2019-01-18 19:36] LABS: Source, Urine Catheter
[2019-01-18 19:41] LABS: Bilirubin, Urine Neg (Neg); Blood, Urine 4+ (Neg); Glucose Qualitative, Urine Neg (Neg); Ketones, Urine Neg (Neg); Leukocyte Esterase, Urine Neg (Neg); Nitrite, Urine Neg (Neg); Protein, Urine Neg (Neg); Urobilinogen, Urine NORM (Normal)
[2019-01-18 19:53] LABS: Appearance, Urine Clear (Clear); Color, Urine Pale Yellow (P-Yellow)
[2019-01-18 19:54] LABS: Bacteria Few /hpf; Squamous Epithelial Cells Many /hpf (Few); White Blood Cells, Urine Not Seen /hpf (0-5)
[2019-01-19 04:28] LABS: BASOPHILS ABSOLUTE AUTO 0.06 K/mm3 (0.00-0.23); BASOPHILS PERCENT AUTO 1 % (0-2); EOSINOPHILS ABSOLUTE AUTO 0.13 K/mm3 (0.00-0.68); EOSINOPHILS PERCENT AUTO 2 % (0-6); Hematocrit 34.4 % (33.0-51.0); Hemoglobin 11.7 g/dL (11.5-16.0); IMMATURE GRAN ABSOLUTE AUTO 0.04 K/mm3 (0.00-0.10); IMMATURE GRAN PERCENT AUTO 1 % (0-1); LYMPHOCYTES ABSOLUTE AUTO 0.71 K/mm3 (0.84-5.20); LYMPHOCYTES PERCENT AUTO 10 % (21-46); MONOCYTES ABSOLUTE AUTO 1.22 K/mm3 (0.16-1.47); MONOCYTES PERCENT AUTO 17 % (4-13); Mean Corpuscular HGB 33.7 pg (26.0-34.0); Mean Corpuscular Volume 99 fL (80-100); Mean Platelet Volume 9.6 fL (9.1-12.4); NEUTROPHILS ABSOLUTE AUTO 4.88 K/mm3 (1.96-9.15); NEUTROPHILS PERCENT AUTO 69 % (41-73); Platelet Count 170 K/mm3 (150-400); RDW Coefficient Variation 14.5 % (11.7-14.2); RDW Standard Deviation 52.3 fL (35.1-46.3); Red Blood Cell Count 3.47 M/mm3 (3.80-5.20); White Blood Cell Count 7.04 K/mm3 (4.00-11.30)
[2019-01-19 05:00] LABS: Albumin, Blood 3.2 g/dL (3.4-5.0); Albumin/Globulin Ratio 1.1 (0.8-1.8); Bun/Creatinine Ratio 16.8 (12.0-20.0); Calcium, Blood 8.7 mg/dL (8.5-10.1); Creatinine, Blood 0.95 mg/dL (0.40-1.00); Globulin, Blood 2.8 g/dL (2.2-4.0); Potassium, Blood 4.1 mmol/L (3.5-5.5)
--- NOTE | 2019-01-19 05:16 | NUR ---
SUMMARY NO ACUTE CHANGES NOTED THROUGH THE NIGHT. VSS. ON ROOM AIR, RESP UNLABORED. Q2 TURNS. LG BM NOTED. MANJULA CARE PROVIDED AND NYSTATIN POWDER APPLIED. MICHAEL REMAINS PATENT, CLEAR YELLOW URINE NOTED. PT REMAINS CONFUSED, REORIENTATION PROVIDED FREQUENTLY. DEMENTIA REPORTED AT BASELINE. BED ALARM ON FOR SAFETY. CALL LIGHT IN REACH, [facility]
--- NOTE | 2019-01-19 17:28 | NUR ---
PT PLESANT AND COOPERATIVE THIS SHIFT. PT HAS GOOD APPETITE AND DRANK MINIMAL FLUIDS, DAUGHTER REPORTED THAT PT DOES NOT DRINK MUCH FLUID AT BASELINE. PT UP TO CHAIR THIS AFTERNOON AND TRANSFERED EASILY. PT CONCERNED ABOUT FALLING, BUT SHE DID WELL MOVING FROM THE BED TO THE CHAIR.
--- NOTE | 2019-01-20 05:27 | NUR ---
SHIFT SUMMARY NO ACUTE CHANGES TO REPORT OVENIGHT. PT A/O TO SELF ONLY. PLESANTLY CONFUSED. SHE RECEIVED 40 MG OF IV LASIKS HS PER ORDERS. 2700 MLS OUT FROM MICHAEL THIS SHIFT. PT HAS RESTED COMFORTABLY T/O THE SHIFT AND HAS DENIED PAIN. WILL CONTINUE TO MONITOR AND REPORT TO ONCOMING RN.
[2019-01-20 08:34] LABS: Anion Gap 6 mmol/L (6-16); Blood Urea Nitrogen 11 mg/dL (8-24); Bun/Creatinine Ratio 12.2 (12.0-20.0); CO2, Blood 32 mmol/L (21-32); Chloride, Blood 89 mmol/L (98-108); Glomerular Filtration Rate >60 (60-); Glucose, Blood 108 mg/dL (70-99); Potassium, Blood 3.6 mmol/L (3.5-5.5); Sodium, Blood 127 mmol/L (136-145)
--- NOTE | 2019-01-20 11:51 | NUR ---
DR DANIEL HERE TO SEE PT. DISCUSSED PT'S STATUS. REPORTS TO D/C IV LASIX AND GIVE ORAL LASIX.
--- NOTE | 2019-01-20 12:52 | NUR ---
DR DANIEL REPORTS MAY D/C TELE AND OK FOR NO IV ACCESS. DISCUSSED WITH MANAGER SEMICONDUCTOR.
--- NOTE | 2019-01-20 19:05 | NUR ---
SHIFT SUMMARY PT EATING AND DRINKING, PT ON FLUID RESTRICTION. PT BEEN UP IN CHAIR MOST OF DAY. FAMILY IN/OUT OF ROOM. PT PULLED OUT IV THIS AM, DR WEST SEE ORDERS. TELE WAS DC'D PER ORDER THEY REPORTED NO EVENTS IN LAST 24 HOURS. PT BEEN ASSISTED WITH ADL'S PRN. PT BEEN REPOSITIONED MULT TIMES IN CHAIR. LEGS BEEN ELEVATED TOLERATED. FAMILY IN/OUT OF ROOM.
--- NOTE | 2019-01-21 04:53 | NUR ---
SHIFT SUMMARY NO ACUTE CHANGES TO REPORT OVERNIGHT. PT RECEIVED PO LASIKS THIS SHIFT. SHE HAS HAD 2150 OUT OF HER CATHETER. BLE STILL EDEMATOUS +1, WITH WRINKLING OF THE SKIN. PT A/O TO SELF. SHE THINKS SHE IT AT [place]. PLESANTLY CONFUSED. CALLS OUT A FEW TIMES IN THE NIGHT WHEN SHE FORGETS WHERE SHE IS, BUT ONCE REDIRECTED SHE FALLS BACK TO SLEEP. SHE RESTS MOST OF THE NIGHT. VITALS ARE STABLE. ASSESSMENT UNCHANGED. WILL CONTINUE TO MONITOR AND REPORT TO ONCOMING RN.
[2019-01-21 05:00] LABS: Bun/Creatinine Ratio 14.1 (12.0-20.0); Calcium, Blood 8.9 mg/dL (8.5-10.1); Creatinine, Blood 0.99 mg/dL (0.40-1.00); Potassium, Blood 3.4 mmol/L (3.5-5.5)
--- NOTE | 2019-01-21 06:25 | NUR ---
HEPARIN GTT 0548 PT VOICES CONCERN ABOUT STARTING HEPARIN GTT WHILE TAKING BRILINTA. PT STATES SHE HAS BEEN TAKING BRILINTA FOR THREE MONTHS AND IS CONCERNED WITH INCREASED BLEEDING WHILE BEING ON BOTH BRILINTA AND HEPARIN GTT. SUPPORT PROVIDED TO PT. I STATED THAT I WOULD CALL DOCTOR OVERTON AND NOTIFY HIM OF HER CONCERN. 0550 CALL PLACED TO PHARMACY TO GET A RECOMMENDATION WITH PT BEING ON BRILINTA WITH HEPARIN GTT. HE STATES TO CALL [facility] TO GET FURTHER CLARIFICATION. CALL PLACED TO DR. OVERTON TO NOTIFY HIM OF PT VOICED CONCERN, AND THAT SHE IS CURRENTLY ON BRILINTA. HE STATED THAT BRILINTA IS NOT A BLOOD THINNER BUT A ANTIPLATELET AND THE RISK OF GA IS GREATER THAN BLEEDING AND THAT BLEEDING CAN BE REVERSED IF NECESSARY. HE STATES SHE NEEDS THE HEPARIN DRIP, BUT THAT SHE HAS THE RIGHT TO REFUSE, AND THAT HE DID NOT HAVE TIME TO COME SEE PT AND TALK WITH HER. RELAYED WHAT DR. OVERTON TOLD ME TO PT, AND THAT SHE HAD THE RIGHT TO REFUSE THE HEPARIN GTT. SHE STATED SHE WAS UNSURE, AND WAS CONCERNED THAT SHE WOULD HAVE TO BE ON THE HEPARIN INSURANCE REPRESENTATIVE. I EXPLAINED THAT A HEPARIN GTT IS SHORT TERM. I AGAIN REPEATED WHAT DR. OVERTON STATED, AND THAT SHE HAD THE RIGHT TO REFUSE. SHE AGREED TO START HEPARIN GTT. BRILINTA WAS NOT DC'D BY DR. OVERTON. HEPARIN GTT HUNG AND VERIFIED WITH VERONICA JEAN RN. BOTH GLUE DRIER OPERATOR JEN FINNEY RN AND VERONICA AWARE OF CONVERSATION WITH PT. PHARMACIST AWARE OF SITUATION WELL. WILL NOTIFY DAYSHIFT GAYLE.
--- NOTE | 2019-01-21 15:43 | NUR ---
PATIENT ALERT TO SELF AND FAMILY. MICHAEL TO BE D'C WHEN MOVED BACK TO BED. AT THIS TIME PATIENT SLEEPING IN CHAIR. PER DAUGHTER PATIENT HAS HAD A COUGH FOR 10 YEARS. DIFFICULT TO TELL IF PATIENT HAS SWALLOWING PROBLEMS. DOES COUGH SOMETIMES AFTER EATTING. TAKES A LONG TIME TO CHEW FOOD AND DOES POCKET FOOD. SWALLOWING EVAL ORDERED. COOPERATIVE. CONFUSED. REPEATS QUESTIONS. WCTM.
--- NOTE | 2019-01-22 04:30 | NUR ---
SHIFT SUMMARY PT ADMITTED FOR CHG EXACERBATION. DNR. REGULAR DIET. 1000 ML FLUID RESTRICTION. ELEVATE HOB 45 DEGREES. NO FAITH ACCESS NEEDED. LOVENOX FOR DVT PROPHYLAXIS. PT FROM [facility] AND PLAN IS FOR PT TO RETURN WHEN LEAVING THE HOSPITAL. TAKES MEDICATIONS WHOLE IN APPLESAUCE, MONITOR ORAL CAVITY FOLLOWING ADMINISTRATION FOR POCKETING. 2 PERSON ASSIST WITH TRANSFER PER REPORT, PT DID NOT GET OUT OF BED SO FAR THIS SHIFT. PER ARMOND, PT WAS INDEPENDENT WITH A WALKER PLOF. PT ALSO HAD A FALL LAST MONDAY PER REPORT. THE PT HAS APPEARED TO SLEEP COMFORTABLY MOST OF THE NIGHT. NO APPARENT SIGNS OF ACUTE DISTRESS. FREQUENT VISUAL CHECKS PT DOES NOT USE CALL LIGHT APPROPRIATELY. BED ALARM FOR SAFETY.
[2019-01-22 05:36] LABS: Bun/Creatinine Ratio 17.9 (12.0-20.0); Calcium, Blood 9.2 mg/dL (8.5-10.1); Creatinine, Blood 1.12 mg/dL (0.40-1.00); Potassium, Blood 3.6 mmol/L (3.5-5.5)
--- NOTE | 2019-01-22 10:47 | NUR ---
STRAIGHT CATH WITH 600 ML OUT. TOLERATED WELL
--- NOTE | 2019-01-22 16:58 | NUR ---
Spiritual Care intial note: Lily is pleasantly confused and was unable to carry conversation. She smiles easily. Her dtr, Nandini was at bedside. Nandini appears loving, patient, and devoted. She told me stories from her mother's life with great pride and tenderness. Nandini is aware that her mom is fragile. Provided gentle family service counselor, prayer and theraputic listening to good effect. No fears or concerns presented. I will remain available.
--- NOTE | 2019-01-22 18:10 | NUR ---
ROSIE PALACIOS ADVISED STRAIGHT CATH THIS AM HAD 600ML OUT. PATIENT ON BSC FEW TIMES T/O DAY WITH NO RESULTS. STRAIGHT CATH AGAIN W/400 ML OUT. ORDER MICHAEL NEXT TIME IF CAN NOT URINATE AND 500ML IN BLADDER UPON SCAN. SEND UA W/CULTURE AT THAT TIME.
--- NOTE | 2019-01-22 18:44 | NUR ---
ALERT TO SELF AND FAMILY. PATIENT UNABLE TO VOID. STRAIGHT CATH X 2 WITH MD AWARE. 2 PERSON MAX ASSIST. BREAKFAST AND LUNCH PATIENT WAS FED. DINNER PATIENT WAS ABLE TO FEED SELF WITH YARN MAN AND CUES. USES SIPPY CUP BETTER THAN PLAIN CUP. BED IN LOW POSITION. FREQUENT ROUNDING PATIENT IS UNABLE TO MAKE NEEDS KNOWN. WCTM.
--- NOTE | 2019-01-23 04:09 | NUR ---
SHIFT SUMMARY NO APPARENT ACUTE CHANGES NOTED SO FAR THIS SHIFT. PT CONTINUES TO APPEAR VERY TIRED AND SLEEPING MOST OF THE SHIFT. PT DID APPEAR TO VOID THIS SHIFT. HOWEVER, ATTENDS AND BED FULL OF EXTRA LARGE LOOSE STOOL SO NOT COMPLETELY CLEAR IF STOOL WAS W[place]. WILL BLADDER SCAN AGAIN, PREVIOUS RESULTS 202. ORDERS TO REPLACE MICHAEL IF BLADDER SCAN GREATER THEN 500. PT APPEARS TO BE SLEEPING COMFORTABLY AT THIS TIME WITH NO APPARENT SIGNS OF ACUTE DISTRESS. FREQUENT VISUAL CHECKS PT NO ABLE TO MAKE NEEDS KNOWN WITH USE OF CALL LIGHT.
[2019-01-23 05:17] LABS: Bun/Creatinine Ratio 25.4 (12.0-20.0); Creatinine, Blood 1.14 mg/dL (0.40-1.00); Potassium, Blood 3.8 mmol/L (3.5-5.5)
[2019-01-23 05:38] LABS: Source, Urine Catheter
[2019-01-23 05:40] LABS: Bilirubin, Urine Neg (Neg); Blood, Urine Neg (Neg); Glucose Qualitative, Urine Neg (Neg); Ketones, Urine Neg (Neg); Leukocyte Esterase, Urine 2+ (Neg); Nitrite, Urine Neg (Neg); Protein, Urine Neg (Neg); Urobilinogen, Urine NORM (Normal); pH, Urine 6.5 (5.0-8.0)
[2019-01-23 05:46] LABS: Appearance, Urine Hazy (Clear); Color, Urine Yellow (P-Yellow)
[2019-01-23 05:47] LABS: Red Blood Cells, Urine Not Seen /hpf (0-2); White Blood Cells, Urine 25-50 /hpf (0-5)
[2019-01-23 05:48] LABS: Amorphous Mod (0-Heavy); Bacteria Mod /hpf; Squamous Epithelial Cells Few /hpf (Few)
--- NOTE | 2019-01-23 17:34 | NUR ---
SHIFT SUMMARY PT HAS HAD NO COMPLAINTS THIS SHIFT. PT WORKED WITH OCCUPATIONAL THERAPY THIS SHIFT. NO ACUTE CHANGES THIS SHIFT. PT EATING WELL. PT SLEPT UNLESS WOKEN BY STAFF. BED BATH DONE. IV PLACED THIS AFTERNOON AND ROCEPHIN STARTED. NO DISTRESS AT THIS TIME. CALL LIGHT IN REACH. WILL CONTINUE TO MONITOR AND REPORT TO ONCOMING RN.
[2019-01-24 05:38] LABS: Calcium, Blood 9.1 mg/dL (8.5-10.1); Creatinine, Blood 1.04 mg/dL (0.40-1.00); Potassium, Blood 4.1 mmol/L (3.5-5.5)
--- NOTE | 2019-01-24 05:58 | NUR ---
SHIFT SUMMARY PT IS AN 83 Y/O FEMALE, ADMITTED FOR CHF EXACERBATION. SHE IS A&O X SELF AND FAMILY ONLY, AND A 2-3 PERSON MAX ASSIST OUT OF BED. THE PT DENIED ANY COMPLAINTS OF PAIN, NAUSEA OR SOB, AND SLEPT WELL THROUGH THE NIGHT. PT HAS A MICHAEL IN PLACE FOR URINARY RETENTION, DRAINING CLEAR YELLOW URINE. VITAL SIGNS WERE STABLE. NO OTHER ACUTE CHANGES IN PT CONDITION NOTED. WILL CONTINUE TO MONITOR AND TREAT PER EMAR UNTIL HAND OFF TO DAY SHIFT.
--- NOTE | 2019-01-24 14:36 | NUR ---
SHE HAS BEEN UP TO THE CHAIR FOR BOTH MEALS SO FAR TODAY. SHE CAN FEED HERSELF AFTER BEING SET UP AND WITH SOME SUPERVISION. SHE USES THE SIPPY CUPS INDEPENDENTLY. SHE IS CONFUSED AND FEELS LIKE SOMETHING IS ALWAYS WRONG. WHEN ASKED HOW SHE IS, SHE ONLY HAS A NEGATIVE ANSWER BUT IS VERY VAGUE. NO SOB, AND DENIES PAIN.
--- NOTE | 2019-01-24 16:03 | NUR ---
RESTING IN BED. DAUGHTER PRESENT. SHE TRANSFERS WELL BUT IS VERY AFRAID OF FALLING.
--- NOTE | 2019-01-24 18:17 | NUR ---
SHE IS SITTING UP IN THE CHAIR EATING DINNER WITH SUPERVISION. SHE HAS SAID SHE DOESN'T FEEL GOOD BUT IS UNABLE TO SAY WHAT IS BOTHERING HER. I&O IS GOOD. MICHAEL PATENT. SHE MOBILIZES WELL WITH ASSIST BUT IS SCARED SHE'LL FALL. NO SOB OR PAIN. HER DAUGHTER VISITED THIS AFTERNOON.
--- NOTE | 2019-01-25 05:52 | NUR ---
PATIENT SLEPT WELL OVERNIGHT. CONFUSED BUT TO SELF. ASKING STAFF IF ANY OF THEM WERE HER DAUGHTER..REORIENTED SEVERAL TIMES. COOPERATIVE IN CARE AND OVERNIGHT POSITIONING. MICHAEL CATHETER DRAINING DILUTE URINE IN ADEQUATE AMOUNTS. MANJULA AREA AND RESOLVING OPEN AREA LEFT GLUTEAL FOLD CLEANSED AND NYSTATIN APPLIED. PATIENT TURNED Q2 HOURS THROUGHOUT SHIFT.
--- NOTE | 2019-01-25 11:52 | NUR ---
SHE HAS BEEN SITTING UP ALL MORNING SINCE WORKING WITH PT BEFORE BREAKFAST. SHE IS PLEASANTLY CONFUSED, THOUGH SHE PULLED OUT A SL DURING THE NIGHT AND AFTER BEING RESTARTED AND A 3RD DOSE OF IV ROCEPHIN GIVEN TODAY, SHE ALSO PULLED OUT HER NEW SL INSPITE OF IT BEING COVERED WITH COBAN. HER DAUGHTER IS WITH HER NOW. LAUREN IS FEEDING HERSELF HER EARLY LUNCH. HAS JUST ROUNDED. CALL WAS MADE TO [facility] ABOUT POSS DISCHARGE TODAY BUT [facility] RN NOT AVAILABLE TODAY FOR INTAKE.
--- NOTE | 2019-01-25 14:34 | NUR ---
FERNANDA WAS DC'D AT 1250. SHE HAD A SMALL AMT OF INCONTINENT URINE IN A PULL-UP. APPROXIMATELY 40 MLS. CLEANED. ATTENDS PUT ON. WILL CHECK VOID AND BLADDER SCAN AT 4 PM AND CALL .
[2019-01-25] MEDS ORDERED: CEFD300 PO (16:59)
[2019-01-25] MEDS ORDERED: FURO20 PO (16:59)
[2019-01-25] MEDS ORDERED: POTA10T PO (17:00)
--- NOTE | 2019-01-25 18:11 | NUR ---
DISCHARGED TO [facility] AT 1700 WITH INSTRUCTIONS AND HER BELONGINGS. HE DAUGHTER DRIVE HER. LAUREN WAS INCONTINENT X2 AND HAD 2 BLADDER SCANS AFTER HER MICHAEL WAS DC'D. I FAXED THE DC ORDERS TO [facility] WHEN I RECEIVED THEM FROM .
== END 2019-01-25 17:13 | disposition home or self-care (01) | DRG 291 ==
LOC: ER 11:11 → MEDS 13:58 → ENPENDDIS 01-25 17:03 → MEDS 01-25 17:13
PROVIDERS: Emergency Medicine; Family Medicine; Internal Medicine; ADMIT Internal Medicine Endocrinology, Diabetes & Metabolism
DX: I50.33 Acute on chronic diastolic (congestive) heart failure (principal); G93.41 Metabolic encephalopathy; N39.0 Urinary tract infection, site not specified; E87.1 Hypo-osmolality and hyponatremia; I27.20 Pulmonary hypertension, unspecified; F03.90 Unspecified dementia, unspecified severity, without behavioral disturbance, psychotic disturbance, mood disturbance, and anxiety; I95.9 Hypotension, unspecified
CPT/HCPCS: 36415; 51701; 51702; 70450; 71046; 80048; 80053; 81001; 83880; 84484; 85025; 87086; 92526; 92610; 93005; 93010; 93306; 96374-59; 97110; 97116; 97161; 97166; 97530; 97535; 99285-25; A9270; J0696; J1650; J1940

== ENCOUNTER → 2019-09-02 | Outpatient (CLI) | payer MEDICARE ==
[~2019-09-02] MED LIST changes: +BENGAY113 GM TOP; +BISA10S PR; +CEFD300 PO; +CLINPRO 5000113 GM PO; +COUGH MM; +Culturelle1 CAP PO; +Eq Liquid Anta769 ML PO; +FURO20 PO; +Fleet Enema132 ML PR; +GUAI600T33 PO; +MYRBETRIQ25 MG PO; +Milk Of Ma400 MG/5 M PO; +NAMZARIC 28 MG1 EACH PO; +NITR100CA PO; +PINK BISMU PO; +POTA10T PO; +PROAIR RESPICL90 MCG INH; +Pedi-Dri 100,0060 GM TOP; +Pulmicort0.5 MG/2 M INH; +TRAZ50 PO; +TUMS500 MG PO; +TUSSIN MUC100 MG/5 M PO; +VITAMIN D-32000 UNIT PO; +Zantac150 MG PO
[2019-09-02 10:46] LABS: Bilirubin, Urine Neg (Neg); Blood, Urine Neg (Neg); Glucose Qualitative, Urine Neg (Neg); Ketones, Urine Neg (Neg); Leukocyte Esterase, Urine 2+ (Neg); Nitrite, Urine Pos (Neg); Protein, Urine Neg (Neg); Urobilinogen, Urine NORM (Normal); pH, Urine 6.5 (5.0-8.0)
[2019-09-02 11:13] LABS: Appearance, Urine Clear (Clear); Bacteria Rare /hpf; Color, Urine Yellow (P-Yellow); Red Blood Cells, Urine Not Seen /hpf (0-2); Squamous Epithelial Cells Rare /hpf (Few)
== END | disposition home or self-care (01) ==
LOC: LAB 09:54 → LAB SHORT 09:54
PROVIDERS: Hospitalist
DX: N39.0 Urinary tract infection, site not specified (principal)
CPT/HCPCS: 81001; 87077; 87086; 87186

== ENCOUNTER → 2019-12-12 | Outpatient (CLI) | payer MEDICARE ==
[2019-12-12 18:19] LABS: Source, Urine Clean Catch
[2019-12-12 19:56] LABS: Appearance, Urine Hazy (Clear); Bilirubin, Urine Neg (Neg); Blood, Urine 1+ (Neg); Color, Urine Yellow (P-Yellow); Glucose Qualitative, Urine Neg (Neg); Ketones, Urine Neg (Neg); Leukocyte Esterase, Urine 3+ (Neg); Nitrite, Urine Pos (Neg); Protein, Urine Neg (Neg); Urobilinogen, Urine NORM (Normal)
[2019-12-12 20:18] LABS: White Blood Cells, Urine 25-50 /hpf (0-5)
[2019-12-12 20:19] LABS: Bacteria Many /hpf; Squamous Epithelial Cells Few /hpf (Few)
== END | disposition home or self-care (01) ==
LOC: LAB SHORT 18:14 → LAB 18:14
PROVIDERS: Hospitalist
DX: N39.0 Urinary tract infection, site not specified (principal)
CPT/HCPCS: 81001; 87077; 87086; 87186

== ENCOUNTER → 2020-04-14 | Outpatient (CLI) | payer MEDICARE ==
[2020-04-15 13:42] LABS: Appearance, Urine Hazy (Clear); Bilirubin, Urine Neg (Neg); Blood, Urine 1+ (Neg); Color, Urine Yellow (P-Yellow); Glucose Qualitative, Urine Neg (Neg); Ketones, Urine Neg (Neg); Leukocyte Esterase, Urine 3+ (Neg); Nitrite, Urine Neg (Neg); Protein, Urine Neg (Neg); Urobilinogen, Urine NORM (Normal)
[2020-04-15 14:27] LABS: Bacteria Mod /hpf; Red Blood Cells, Urine 0-2 /hpf (0-2); Squamous Epithelial Cells Few /hpf (Few); White Blood Cells, Urine 50-100 /hpf (0-5)
== END | disposition home or self-care (01) ==
LOC: LAB 08:20
PROVIDERS: Hospitalist
DX: N39.0 Urinary tract infection, site not specified (principal)
CPT/HCPCS: 81001; 87077; 87086; 87186

== ENCOUNTER → 2020-05-28 | Outpatient (CLI) | payer MEDICARE, OTHER ==
[2020-05-28 16:45] LABS: Appearance, Urine Clear (Clear); Bilirubin, Urine Neg (Neg); Blood, Urine Neg (Neg); Color, Urine Yellow (P-Yellow); Glucose Qualitative, Urine Neg (Neg); Ketones, Urine Neg (Neg); Leukocyte Esterase, Urine 1+ (Neg); Nitrite, Urine Neg (Neg); Protein, Urine Neg (Neg); Urobilinogen, Urine NORM (Normal)
[2020-05-28 16:55] LABS: Bacteria Many /hpf; Red Blood Cells, Urine 0-2 /hpf (0-2); Squamous Epithelial Cells Few /hpf (Few)
== END | disposition home or self-care (01) ==
LOC: LAB 15:28 → LAB SHORT 15:28
PROVIDERS: Hospitalist
DX: N39.0 Urinary tract infection, site not specified (principal)
CPT/HCPCS: 81001; 87077; 87086; 87186

== ENCOUNTER → 2020-06-25 | Outpatient (CLI) | payer MEDICARE, OTHER ==
[2020-06-25 09:38] LABS: Source, Urine Clean Catch
[2020-06-25 10:48] LABS: Appearance, Urine Hazy (Clear); Bilirubin, Urine Neg (Neg); Blood, Urine 1+ (Neg); Color, Urine Yellow (P-Yellow); Glucose Qualitative, Urine Neg (Neg); Ketones, Urine Neg (Neg); Leukocyte Esterase, Urine 3+ (Neg); Nitrite, Urine Pos (Neg); Protein, Urine Neg (Neg); Urobilinogen, Urine NORM (Normal)
[2020-06-25 11:41] LABS: White Blood Cells, Urine 50-100 /hpf (0-5)
[2020-06-25 11:42] LABS: Bacteria Many /hpf; Red Blood Cells, Urine 0-2 /hpf (0-2); Squamous Epithelial Cells Mod /hpf (Few)
== END | disposition home or self-care (01) ==
LOC: LAB SHORT 03:10 → LAB 03:10
PROVIDERS: Hospitalist
DX: N39.0 Urinary tract infection, site not specified (principal)
CPT/HCPCS: 81001; 87077; 87086; 87186

== ENCOUNTER → 2020-07-16 | Outpatient (CLI) | payer MEDICARE, OTHER ==
[2020-07-16 12:39] LABS: Appearance, Urine Hazy (Clear); Bilirubin, Urine Neg (Neg); Blood, Urine 1+ (Neg); Color, Urine Yellow (P-Yellow); Glucose Qualitative, Urine Neg (Neg); Ketones, Urine Neg (Neg); Leukocyte Esterase, Urine 3+ (Neg); Nitrite, Urine Pos (Neg); Protein, Urine Neg (Neg); Specific Gravity, Urine 1.015 (1.003-1.022); Urobilinogen, Urine NORM (Normal)
[2020-07-16 13:03] LABS: Red Blood Cells, Urine 0-2 /hpf (0-2); White Blood Cells, Urine 25-50 /hpf (0-5)
[2020-07-16 13:04] LABS: Bacteria Many /hpf; Squamous Epithelial Cells Rare /hpf (Few)
== END | disposition home or self-care (01) ==
LOC: LAB 06:45 → LAB SHORT 06:45
PROVIDERS: Hospitalist
DX: N39.0 Urinary tract infection, site not specified (principal)
CPT/HCPCS: 81001; 87077; 87086; 87186

== ENCOUNTER → 2020-08-05 | Outpatient (CLI) | payer MEDICARE, OTHER ==
[2020-08-06 12:41] LABS: Source, Urine Clean Catch
[2020-08-06 15:48] LABS: Bilirubin, Urine Neg (Neg); Blood, Urine Neg (Neg); Glucose Qualitative, Urine Neg (Neg); Ketones, Urine Neg (Neg); Leukocyte Esterase, Urine 1+ (Neg); Nitrite, Urine Neg (Neg); Protein, Urine 1+ (Neg); Specific Gravity, Urine 1.015 (1.003-1.022); Urobilinogen, Urine NORM (Normal)
[2020-08-06 16:05] LABS: Appearance, Urine Clear (Clear); Color, Urine Yellow (P-Yellow)
[2020-08-06 16:07] LABS: Red Blood Cells, Urine 0-2 /hpf (0-2); Squamous Epithelial Cells Mod /hpf (Few)
[2020-08-06 16:08] LABS: Bacteria Few /hpf
== END ==
LOC: LAB SHORT 06:20 → LAB 06:20
PROVIDERS: Hospitalist
DX: N39.0 Urinary tract infection, site not specified (principal); Z88.0 Allergy status to penicillin; Z88.1 Allergy status to other antibiotic agents; Z88.5 Allergy status to narcotic agent
CPT/HCPCS: 81001; 87086

== ENCOUNTER → 2022-05-27 | Outpatient (CLI) | payer MEDICARE ==
[2022-05-27 12:51] LABS: BASOPHILS ABSOLUTE AUTO 0.06 K/mm3 (0.00-0.23); BASOPHILS PERCENT AUTO 1 % (0-2); EOSINOPHILS ABSOLUTE AUTO 0.19 K/mm3 (0.00-0.68); EOSINOPHILS PERCENT AUTO 2 % (0-6); Hematocrit 35.7 % (33.0-51.0); Hemoglobin 11.8 g/dL (11.5-16.0); IMMATURE GRAN ABSOLUTE AUTO 0.08 K/mm3 (0.00-0.10); IMMATURE GRAN PERCENT AUTO 1 % (0-1); LYMPHOCYTES ABSOLUTE AUTO 0.97 K/mm3 (0.84-5.20); LYMPHOCYTES PERCENT AUTO 13 % (21-46); MONOCYTES ABSOLUTE AUTO 0.85 K/mm3 (0.16-1.47); MONOCYTES PERCENT AUTO 11 % (4-13); Mean Corpuscular HGB Conc 33.1 g/dL (31.5-36.5); Mean Corpuscular Volume 97 fL (80-100); Mean Platelet Volume 10.1 fL (9.1-12.4); NEUTROPHILS ABSOLUTE AUTO 5.62 K/mm3 (1.96-9.15); NEUTROPHILS PERCENT AUTO 72 % (41-73); Platelet Count 230 K/mm3 (150-400); RDW Coefficient Variation 12.4 % (11.7-14.2); RDW Standard Deviation 43.8 fL (35.1-46.3); Red Blood Cell Count 3.69 M/mm3 (3.80-5.20); White Blood Cell Count 7.77 K/mm3 (4.00-11.30)
[2022-05-27 13:14] LABS: Albumin, Blood 3.1 g/dL (3.4-5.0); Bilirubin, Total 0.4 mg/dL (0.1-1.0); Bun/Creatinine Ratio 16.8 (12.0-20.0); Calcium, Blood 8.7 mg/dL (8.5-10.1); Creatinine, Blood 1.31 mg/dL (0.40-1.00); Potassium, Blood 4.2 mmol/L (3.5-5.5); Thyroid Stimulating Hormone 1.48 uIU/mL (0.360-4.800); Total Protein, Blood 6.1 g/dL (6.4-8.2)
== END | disposition home or self-care (01) ==
LOC: LAB SHORT 11:55
PROVIDERS: Hospitalist
DX: E78.49 Other hyperlipidemia (principal); I12.9 Hypertensive chronic kidney disease with stage 1 through stage 4 chronic kidney disease, or unspecified chronic kidney disease; N18.4 Chronic kidney disease, stage 4 (severe)
CPT/HCPCS: 80053; 83970; 84443; 85025